=== PATIENT | female | born 1955 | race Caucasian/White ===

== ENCOUNTER 2020-10-01 05:58 | Outpatient (REF) | payer OTHER, SELFPAY ==
[2020-10-01 07:01] LABS: Hematocrit 46.4 % (37-47); Hemoglobin 15.1 g/dl (12.0-16.0); Mean Corpuscular HGB Conc 32.5 g/dl (31.0-35.0); Mean Corpuscular Hemoglobin 28.4 pg (27.0-33.0); Mean Corpuscular Volume 87.4 fL (80-98); Mean Platelet Volume 9.9 fL (9.4-12.3); Platelet Count 245 X10*3/uL (160-400); Red Blood Count 5.31 X10*6/uL (4.20-5.50); Red Cell Distribution Width 13.2 % (11.0-16.0); White Blood Count 5.3 X10*3/uL (4.8-10.8)
[2020-10-01 07:34] LABS: Alanine Aminotransferase 22 U/L (0-31); Albumin Level 4.4 g/dL (3.5-5.0); Alkaline Phosphatase 109 U/L (39-117); Anion Gap 13 (12-20); Aspartate Amino Transferase 18 U/L (5-31); Bilirubin Total 0.7 mg/dL (0.0-1.0); Blood Urea Nitrogen 18 mg/dL (9-16); Carbon Dioxide 29 mmol/L (22-29); Chloride 102 mmol/L (96-108); Cholesterol 254 mg/dL; Estimated Glomerular Filt Rate > 60; Glucose Fasting 104 mg/dL (60-99); Glucose Urine UA NEG (NEG); HDL Cholesterol 47 mg/dL; LDL Cholesterol Calculated 179 mg/dl; Leukocyte Esterase Urine NEG (NEG); Nitrite Urine NEG (NEG); Potassium 4.2 mmol/L (3.3-5.1); Sodium 140 mmol/L (135-145); Specific Gravity - Urine 1.025 (1.005-1.025); Total Protein 7.5 g/dL (6.5-8.0); Triglycerides 142 mg/dL; Urine Blood NEG (NEG); Urine Ketones NEG (NEG); Urine Protein NEG (NEG-TRACE)
[2020-10-01 07:38] LABS: Appearance Urine CLEAR; Color Urine YELLOW
[2020-10-01 07:51] LABS: RBC Urine 0 /HPF (0); Squamous Epithelial Cell Urine 1+ /LPF; WBC Urine 0 /HPF (0-4)
[2020-10-01 07:57] LABS: Vitamin D 25-OH Total 26.3 ng/mL (>30)
[2020-10-01 08:12] LABS: Estimated Average Glucose 111 mg/dL; Hemoglobin A1c % 5.5 %
== END 2020-10-01 05:59 | disposition home or self-care (01) ==
LOC: HO.LAB 05:58
PROVIDERS: PCP Internal Medicine; Visit Provider Internal Medicine
DX: Z00.00 Encounter for general adult medical examination without abnormal findings (principal); E55.9 Vitamin D deficiency, unspecified; E78.5 Hyperlipidemia, unspecified; R73.9 Hyperglycemia, unspecified
CPT/HCPCS: 36415; 80053; 80061; 81001; 82306; 82533; 83036; 84443; 85027

== ENCOUNTER 2020-11-19 11:07 | Outpatient (REF) | payer OTHER, SELFPAY ==
--- NOTE | ~2020-11-19 | MM_ITS ---
EXAMINATION: MM SCREENING DIGITAL BREAST TOMOSYNTHESIS, BILATERAL CLINICAL INFORMATION: Screening. Asymptomatic. The lifetime risk of breast cancer based on the Tyrer-Cuzick Model is 15%. COMPARISON: Mammography: 01/17/2018, 11/26/2015, 03/19/2014 TECHNIQUE: Digital breast tomosynthesis is performed in both the craniocaudal and mediolateral oblique views along with computer-aided detection (CAD). Synthesized 2D images are generated from the tomosynthesis. FINDINGS: There are scattered areas of fibroglandular density (ACR BI-RADS breast composition Category b). There are no significant masses, abnormal calcifications, or other abnormalities. There is no developing density. No significant changes from prior studies. MM/MM tomosynthesis screening BI IMPRESSION: No mammographic evidence of malignancy. ASSESSMENT: BI-RADS 1: Negative RECOMMENDATION: Routine annual mammography screening. This patient's information was entered into a reminder system with a target due date for their next mammogram.
== END 2020-11-19 11:08 | disposition home or self-care (01) ==
LOC: HO.MAMMO 11:07
PROVIDERS: Visit Provider Internal Medicine
DX: Z12.31 Encounter for screening mammogram for malignant neoplasm of breast (principal)
CPT/HCPCS: 77063; 77067

== ENCOUNTER 2020-11-20 08:54 | Outpatient (REF) | payer OTHER, SELFPAY ==
[2020-11-27 07:26] LABS: HPV 16 RNA NOT DETECTED (NOT DETECTED); HPV mRNA E6/E7 rflx Detected (Not Detected)
== END 2020-11-20 08:55 | disposition home or self-care (01) ==
LOC: HO.LAB 08:54
PROVIDERS: PCP Internal Medicine; Visit Provider Advanced Practice Midwife
DX: Z01.419 Encounter for gynecological examination (general) (routine) without abnormal findings (principal); Z11.51 Encounter for screening for human papillomavirus (HPV)
CPT/HCPCS: 87624; 87625; 88142

== ENCOUNTER 2020-12-09 06:45 | Emergency (ER) | payer MEDICARE, SELFPAY ==
--- NOTE | ~2020-12-09 | XR_ITS ---
EXAMINATION: LEFT ELBOW BILATERAL WRIST X-RAY CLINICAL INFORMATION: Pain post fall COMPARISON: None TECHNIQUE: 3 views of the right elbow and 4 views of each wrist FINDINGS: Right elbow: There is a vertical nondisplaced fracture of the radial head. Joint spaces are normal. There is a joint effusion. Left wrist: Bone alignment is normal. No fracture or dislocation is seen. There is arthritis at the first LONGTERM joint. Soft tissues are unremarkable. Right wrist: Bone alignment is normal. No fracture or dislocation is seen. There is arthritis at the first LONGTERM joint. Soft tissues are normal. XR/XR wrist LT min 3V IMPRESSION: Right elbow: Nondisplaced radial head fracture. Bilateral wrist: Arthritis.
--- NOTE | ~2020-12-09 | XR_ITS ---
EXAMINATION: LEFT ELBOW BILATERAL WRIST X-RAY CLINICAL INFORMATION: Pain post fall COMPARISON: None TECHNIQUE: 3 views of the right elbow and 4 views of each wrist FINDINGS: Right elbow: There is a vertical nondisplaced fracture of the radial head. Joint spaces are normal. There is a joint effusion. Left wrist: Bone alignment is normal. No fracture or dislocation is seen. There is arthritis at the first NURSING HOME joint. Soft tissues are unremarkable. Right wrist: Bone alignment is normal. No fracture or dislocation is seen. There is arthritis at the first NURSING HOME joint. Soft tissues are normal. XR/XR elbow RT min 3V IMPRESSION: Right elbow: Nondisplaced radial head fracture. Bilateral wrist: Arthritis.
--- NOTE | ~2020-12-09 | XR_ITS ---
EXAMINATION: LEFT ELBOW BILATERAL WRIST X-RAY CLINICAL INFORMATION: Pain post fall COMPARISON: None TECHNIQUE: 3 views of the right elbow and 4 views of each wrist FINDINGS: Right elbow: There is a vertical nondisplaced fracture of the radial head. Joint spaces are normal. There is a joint effusion. Left wrist: Bone alignment is normal. No fracture or dislocation is seen. There is arthritis at the first PENITENTIARY joint. Soft tissues are unremarkable. Right wrist: Bone alignment is normal. No fracture or dislocation is seen. There is arthritis at the first PENITENTIARY joint. Soft tissues are normal. XR/XR wrist RT min 3V IMPRESSION: Right elbow: Nondisplaced radial head fracture. Bilateral wrist: Arthritis.
[2020-12-09 07:02] VITALS: BP 149/87; PULSE 67; RESP 18; TEMP 36.3; O2SAT 98; BMI 17.4
--- NOTE | 2020-12-09 07:19 | ED.UPPEXIN ---
HPI - Extremity Injury (Upper) General Chief Complaint: Extremity Problem Stated Complaint: right arm injury Time Seen by Provider: 12/09/20 06:55 Source: patient Mode of arrival: ambulatory Limitations: no limitations History of Present Illness complaint: injury to: right, elbow and wrist Other Extremity Injury: right: wrist and elbow Other injuries: face (scraped nose and upper lip) Handedness: right Place: other (acquaintance house) Severity: moderate Relieving factors: immobilization Exacerbating factors: movement of extremity Context: fall and direct blow Associated symptoms: denies other symptoms Treatments prior to arrival: bandage and NSAIDS Related Data Previous Rx's Medication Instructions Recorded naproxen 500 mg tablet 500 mg PO BID #60 tab 10/10/20 Allergies Allergy/AdvReac Type Severity Reaction Status Date / Time No Known Allergies Allergy Unverified 02/21/20 17:50 [No Known Allergies*] mold, cat dander, seasonal Allergy Unknown Uncoded 02/06/20 00:00 Review of Systems Review of Systems: Constitutional : No Fever, No Chills ENT/Mouth : No Ear Pain, No Hoarseness, No sore throat Eyes: No Eye Pain, No Swelling, No Redness, No Foreign Body Cardiovascular : No Chest Pain, No SOB Respiratory : No Cough, No Dyspnea Gastrointestinal : No Nausea, No Vomiting, No Diarrhea, No abdominal Pain Genitourinary : No Dysuria, No Hematuria Musculoskeletal : positive joint pain, No Myalgias, No Joint Swelling Skin : No Skin lacerations, pos abrasions Neuro : No Weakness, No Numbness, No Loss of Consciousness, No Dizziness, No Headache All other systems reviewed and are negative [facility] Past Medical History Attestation statement: The following information was validated with the patient. Medical History Abnormal Pap smear of cervix Annual physical exam Hyperglycemia Hyperlipidemia Vitamin D deficiency Surgical History H/O removal of cyst H/O shoulder surgery H/O: hysterectomy Hx of section Family History Family History (Updated 11/20/20 @ 11:01 by Vanessa Smith) Mother Breast CA Maternal Grandmother Breast CA Son Suicide Social History Social History Patient Tobacco Use Status: Never used Tobacco Advance Directives: Yes Advance Directives Information Provided: Yes Advance Directives on File: No Physical Exam Vital Signs: Vital Signs: Last Vital Signs Temp 97.4 F 12/09/20 07:02 Pulse 67 12/09/20 07:02 Resp 18 12/09/20 07:02 BP 149/87 H 12/09/20 07:02 Pulse Ox 98 12/09/20 07:02 Body Mass Index 17.4 Appearance: Alert. Oriented X3. No acute distress. Eyes: Pupils equal, round and reactive to light. ENT: Pharynx normal. bruised and mild swelling upper lip, abrasion to bridge of nose mild swelling no septal hematoma no crepitus noted over bridge of nose Neck: Normal inspection. Neck supple. CVS: Pulses normal. Respiratory: No respiratory distress. Abdomen: no signs of trauma Skin: Skin warm and dry. Normal skin color. Normal skin turgor. Extremities: No lower extremity edema. No calf ttp R UE ttp R elbow and R wrist - distal NV intact no pain to shoulder/fingers/forearm/clavicle Neuro: Oriented X 3. No motor deficit. No sensory deficit. Procedures Orthopedic Splinting/Casting Injury #1: Side: right Upper Extremity Injury Location: elbow Upper Extremity Immobilizer: sling/shoulder immobilizer MDM - Extremity Injury (Upper) MDM Narrative Medical decision making narrative: 65 yo female not on AC therapy here with R elbow and wrist pain post mechanical fall patient is NV intact, has soft tissue injuries on face GCS 15 doubt fracture or ICH, will need xrays of RUE - dispo per results and findings. Discharge Plan Discharge Clinical Impression: Closed fracture of radial head Qualifiers: Encounter type: initial encounter Fracture alignment: nondisplaced Laterality: right Qualified Code(s): S52.124A - Nondisplaced fracture of head of right radius, initial encounter for closed fracture Patient Disposition: Home, Self-Care Instructions: Elbow Fracture (ED) Additional Instructions: return to ED for any worsening symptoms or concerns sling x 2 weeks follow up with orthopedics move your wrist/fingers/rotate shoulder Prescriptions: No Action naproxen 500 mg tablet 500 mg PO BID Qty: 60 RF: 1 Referrals: Genevieve Combs PA-C [Physician [facility] Specialist] - 1 week Stand Alone Forms: Work/School Release
== END 2020-12-09 08:37 | disposition home or self-care (01) ==
PROVIDERS: Emergency Provider Emergency Medicine; PCP Internal Medicine
DX: S52.124A Nondisplaced fracture of head of right radius, initial encounter for closed fracture (principal); S00.31XA Abrasion of nose, initial encounter; S00.531A Contusion of lip, initial encounter; W01.0XXA Fall on same level from slipping, tripping and stumbling without subsequent striking against object, initial encounter; Y93.89 Activity, other specified; Y92.099 Unspecified place in other non-institutional residence as the place of occurrence of the external cause; Y99.9 Unspecified external cause status
CPT/HCPCS: 73080; 73110; 99283

== ENCOUNTER 2020-12-17 08:04 | Outpatient (REF) | payer MEDICARE, SELFPAY ==
--- NOTE | ~2020-12-17 | XR_ITS ---
EXAMINATION: XR ELBOW, RIGHT CLINICAL INFORMATION: Right elbow pain. COMPARISON: Right elbow radiographs dated 12/09/2020. TECHNIQUE: AP, lateral, and oblique views of the right elbow. FINDINGS: Redemonstration of a nondisplaced radial head fracture in unchanged anatomic alignment. No new fracture or dislocation. No joint space narrowing or marginal osteophytes. Reduction of the previously seen joint effusion. XR/XR elbow RT min 3V IMPRESSION: Radial head fracture in unchanged anatomic alignment.
== END 2020-12-17 08:05 | disposition home or self-care (01) ==
LOC: HO.HOSX 08:04
PROVIDERS: Visit Provider Physician Assistant
DX: S52.121D Displaced fracture of head of right radius, subsequent encounter for closed fracture with routine healing (principal)
CPT/HCPCS: 73080; 99202

== ENCOUNTER 2020-12-18 08:33 | Outpatient (REF) | payer MEDICARE, OTHER, SELFPAY | END 2020-12-18 08:34 | disposition home or self-care (01) | LOC: HO.LAB 08:33 | PROVIDERS: PCP Internal Medicine; Visit Provider Obstetrics & Gynecology | DX: R87.612 Low grade squamous intraepithelial lesion on cytologic smear of cervix (LGSIL) (principal) | CPT/HCPCS: 57421; 88305 ==

== ENCOUNTER 2020-12-31 08:20 | Outpatient (REF) | payer MEDICARE, OTHER, SELFPAY ==
--- NOTE | ~2020-12-31 | XR_ITS ---
EXAMINATION: XR ELBOW, RIGHT CLINICAL INFORMATION: Right elbow pain. COMPARISON: 12/17/2020 and 12/09/2020. TECHNIQUE: AP, lateral, and oblique views of the right elbow. FINDINGS: There is no significant change in appearance of a nondisplaced radial head fracture. There is some mild sclerosis about the fracture site, however fracture line is still evident. There is some spurring consistent with lateral epicondylitis. There is spurring of the coronoid process. Elbow effusion is evident. XR/XR elbow RT min 3V IMPRESSION: No significant change in appearance of right radial head fracture.Right elbow effusion.
== END 2020-12-31 08:21 | disposition home or self-care (01) ==
LOC: HO.HOSX 08:20
PROVIDERS: PCP Internal Medicine; Visit Provider Physician Assistant
DX: R87.612 Low grade squamous intraepithelial lesion on cytologic smear of cervix (LGSIL) (principal); S52.123D Displaced fracture of head of unspecified radius, subsequent encounter for closed fracture with routine healing
CPT/HCPCS: 73080; 99212; Q3014

== ENCOUNTER 2021-02-11 07:53 | Outpatient (REF) | payer MEDICARE, OTHER, SELFPAY | END 2021-02-11 07:54 | disposition home or self-care (01) | LOC: HO.HOSX 07:53 | PROVIDERS: Visit Provider Physician Assistant | DX: Z13.89 Encounter for screening for other disorder (principal) ==

== ENCOUNTER 2021-02-18 07:45 | Outpatient (REF) | payer MEDICARE, OTHER, SELFPAY ==
--- NOTE | ~2021-02-18 | XR_ITS ---
EXAMINATION: XR ELBOW, RIGHT CLINICAL INFORMATION: Pain COMPARISON: 12/31/2020 TECHNIQUE: AP, lateral, and oblique views of the right elbow. FINDINGS: Redemonstration of radial head fracture, this has not healed yet. No new fracture. Bone alignments otherwise are satisfactory. XR/XR elbow RT min 3V IMPRESSION: Redemonstration of unhealed nondisplaced radial head fracture.
== END 2021-02-18 07:46 | disposition home or self-care (01) ==
LOC: HO.HOSX 07:45
PROVIDERS: Visit Provider Physician Assistant
DX: S52.121D Displaced fracture of head of right radius, subsequent encounter for closed fracture with routine healing (principal)
CPT/HCPCS: 73080; 99212

== ENCOUNTER 2021-03-24 08:00 | Outpatient (REF) | payer MEDICARE, OTHER, SELFPAY ==
--- NOTE | ~2021-03-24 | MM_ITS ---
EXAMINATION: BONE DENSITOMETRY CLINICAL INDICATION: Asymptomatic menopausal state. COMPARISON: Baseline BD dated 04/06/2018. TECHNIQUE: Using a [employer] DXA System (software version: 13.1) manufactured by [employer], dual-energy x-ray absorptiometry was performed of the lumbar spine and left hip. The images are of good technical quality. Summary results are attached. FINDINGS: AP SPINE L1-L4: Current: BMD 1.004 g/cm2, Z-score -1.0, T-score -1.5, osteopenia, 0.2% increase from baseline (<5% change is not significant). Baseline: BMD 1.002 g/cm2. LEFT FEMUR, NECK: Current: BMD 0.797 g/cm2, Z-score -1.0, T-score -1.7, osteopenia. Baseline: BMD 0.862 g/cm2. LEFT FEMUR, TOTAL: Current: BMD 0.916 g/cm2, Z-score -0.4, T-score -0.7, normal, 4.7% decrease from baseline (<5% change is not significant). Baseline: BMD 0.961 g/cm2. IDENTIFIED RISK FACTORS: Early menopause, secondary osteoporosis, hysterectomy, history of fracture (adult). HISTORY OF FRACTURE: Other. MEDICATIONS: Calcium supplements or multivitamin, vitamin D. MM/XR DEXA axial skeleton IMPRESSION: 1. DIAGNOSIS: Osteopenia based on the lowest T-score value of -1.7 in the femoral neck applying World Health Organization criteria. 2. 10-YEAR FRACTURE RISK PREDICTION, FRAX: Major osteoporotic fracture (clinical spine, forearm, hip or shoulder) 14.5%. Hip fracture 1.8%. 3. Treatment Recommendations: NOF guidelines recommend consideration for treatment in postmenopausal women and men age 50 and older presenting with the following: -A hip or vertebral (clinical or morphometric) fracture. -T-score less than or equal to -2.5 at the femoral neck or spine after appropriate evaluation to exclude secondary causes. -Low bone mass at the hip or spine and a 10-year fracture probability by FRAX of greater than or equal to 3% for hip fracture or greater than or equal to 20% for major osteoporotic fracture based on the [place] adapted WHO algorithm. 4. Other Recommendations: All treatment decisions require clinical judgment and consideration of individual patient factors, including patient preferences, comorbidities, previous drug use, risk factors not captured in the FRAX model (e.g. frailty, falls, vitamin D deficiency, increased bone turnover, interval significant decline in bone density) and possible under or overestimation of fracture risk by FRAX. Additional medical evaluation for secondary cause of low bone mineral density may be appropriate. FUTURE SCAN RECOMMENDATION: People with diagnosed cases of osteoporosis or at high risk for fracture should have regular bone mineral density tests. For patients eligible for Medicare, routine testing is allowed once every 2 years. The testing frequency can be increased to one year for patients who have rapidly progressing disease, those who are receiving or discontinuing medical therapy to restore bone mass, or have additional risk factors.
== END 2021-03-24 08:01 | disposition home or self-care (01) ==
LOC: HO.MAMMO 08:00
PROVIDERS: PCP Internal Medicine; Visit Provider Internal Medicine
DX: Z13.820 Encounter for screening for osteoporosis (principal); M85.80 Other specified disorders of bone density and structure, unspecified site; Z78.0 Asymptomatic menopausal state; Z79.899 Other long term (current) drug therapy
CPT/HCPCS: 77080

== ENCOUNTER 2021-04-01 07:18 | Outpatient (REF) | payer MEDICARE, OTHER, SELFPAY ==
--- NOTE | ~2021-04-01 | XR_ITS ---
EXAMINATION: XR ELBOW, RIGHT CLINICAL INFORMATION: Fracture radial head. Follow-up. COMPARISON: Radiographs right elbow 02/18/2021, 12/31/2020 TECHNIQUE: AP, lateral, and oblique views of the right elbow. FINDINGS: Transverse fracture base radial head is still visible. There is some mild callus formation suggested along the fracture line. Fracture fragments are unchanged in alignment. There is no acute fracture or dislocation. Small capsular effusion again seen. XR/XR elbow RT min 3V IMPRESSION: No change in alignment fracture base radial head.
== END 2021-04-01 07:19 | disposition home or self-care (01) ==
LOC: HO.HOSX 07:18
PROVIDERS: Visit Provider Physician Assistant
DX: S52.123D Displaced fracture of head of unspecified radius, subsequent encounter for closed fracture with routine healing (principal); X58.XXXD Exposure to other specified factors, subsequent encounter
CPT/HCPCS: 73080; 99212

== ENCOUNTER 2021-05-12 06:02 | Outpatient (REF) | payer MEDICARE, OTHER, SELFPAY ==
[2021-05-12 07:55] LABS: Estimated Average Glucose 114 mg/dL; Hemoglobin A1c % 5.6 %
[2021-05-12 08:07] LABS: Cholesterol 252 mg/dL; HDL Cholesterol 48 mg/dL; LDL Cholesterol Calculated 180 mg/dl; Triglycerides 123 mg/dL
== END 2021-05-12 06:03 | disposition home or self-care (01) ==
LOC: HO.LAB 06:02
PROVIDERS: PCP Internal Medicine; Visit Provider Internal Medicine
DX: E78.5 Hyperlipidemia, unspecified (principal); R73.9 Hyperglycemia, unspecified
CPT/HCPCS: 36415; 80061; 83036

== ENCOUNTER 2021-10-20 06:13 | Outpatient (REF) | payer MEDICARE, OTHER, SELFPAY ==
[2021-10-20 07:37] LABS: Hemoglobin 14.3 g/dl (12.0-16.0); Mean Corpuscular HGB Conc 33.3 g/dl (31.0-35.0); Mean Corpuscular Hemoglobin 29.2 pg (27.0-33.0); Mean Corpuscular Volume 87.8 fL (80.0-98.0); Platelet Count 217 X10*3/uL (160-400); Red Cell Distribution Width 13.5 % (11.0-16.0); White Blood Count 4.8 X10*3/uL (4.8-10.8)
[2021-10-20 07:48] LABS: Estimated Average Glucose 117 mg/dL; Hemoglobin A1c % 5.7 %
[2021-10-20 08:09] LABS: Alanine Aminotransferase 43 U/L (0-31); Albumin Level 4.2 g/dL (3.5-5.0); Alkaline Phosphatase 90 U/L (39-117); Anion Gap 12 (12-20); Aspartate Amino Transferase 29 U/L (5-31); Bilirubin Total 0.9 mg/dL (0.0-1.0); Blood Urea Nitrogen 17 mg/dL (9-16); Calcium 9.8 mg/dL (8.4-10.2); Carbon Dioxide 25 mmol/L (22-29); Chloride 106 mmol/L (96-108); Cholesterol 232 mg/dL; Estimated Glomerular Filt Rate > 60; Glucose Fasting 97 mg/dL (60-99); HDL Cholesterol 47 mg/dL; LDL Cholesterol Calculated 167 mg/dl; Potassium 4.3 mmol/L (3.3-5.1); Sodium 139 mmol/L (135-145); Total Protein 7.1 g/dL (6.5-8.0); Triglycerides 91 mg/dL
[2021-10-20 08:18] LABS: Vitamin D 25-OH Total 28.1 ng/mL (>30)
[2021-10-20 08:54] LABS: Appearance Urine HAZY; Color Urine YELLOW; Glucose Urine UA NEG (NEG); Leukocyte Esterase Urine NEG (NEG); Nitrite Urine NEG (NEG); PH 5.5 (5.0-8.0); Specific Gravity - Urine 1.025 (1.005-1.025); Urine Blood NEG (NEG); Urine Ketones NEG (NEG); Urine Protein NEG (NEG-TRACE)
[2021-10-20 09:10] LABS: Mucus Urine 2+ /LPF; Squamous Epithelial Cell Urine TRACE /LPF
[2021-10-20 09:11] LABS: RBC Urine 0 /HPF (0); WBC Urine 0 /HPF (0-4)
== END 2021-10-20 06:14 | disposition home or self-care (01) ==
LOC: HO.LAB 06:13
PROVIDERS: PCP Internal Medicine; Visit Provider Internal Medicine
DX: Z00.00 Encounter for general adult medical examination without abnormal findings (principal); E55.9 Vitamin D deficiency, unspecified; E78.5 Hyperlipidemia, unspecified; R73.9 Hyperglycemia, unspecified; Z78.0 Asymptomatic menopausal state
CPT/HCPCS: 36415; 80053; 80061; 81001; 82306; 83036; 85027

== ENCOUNTER 2022-02-09 06:07 | Outpatient (REF) | payer MEDICARE, OTHER, SELFPAY ==
[2022-02-09 08:01] LABS: Cholesterol 247 mg/dL; HDL Cholesterol 47 mg/dL; LDL Cholesterol Calculated 174 mg/dl; Triglycerides 132 mg/dL
== END 2022-02-09 06:08 | disposition home or self-care (01) ==
LOC: HO.LAB 06:07
PROVIDERS: PCP Internal Medicine; Visit Provider Internal Medicine
DX: Z00.00 Encounter for general adult medical examination without abnormal findings (principal); E78.5 Hyperlipidemia, unspecified
CPT/HCPCS: 36415; 80061

== ENCOUNTER 2023-12-02 08:21 | Outpatient (AMB) | payer MEDICARE, OTHER, SELFPAY ==
--- NOTE | 2023-12-02 08:33 | A.OFFPC_ITS ---
Vital Signs 12/02/23 08:34 Height 5 ft 8 in Weight 250 lb BMI 38.0 BP 116/76 Blood Pressure Location Lt brachial Position Sitting Pulse 64 Pulse Source Pulse Oximeter Pulse Oximetry (%) 98 Oxygen Delivery Method Room Air Intake Visit Reasons: Annual PE Intake Note: Pt is here today for PE. Pt states that she would like to have her glucose checked. Allergies No Known Allergies [No Known Allergies*] Allergy (Verified 12/02/23 08:35) mold, cat dander, seasonal Allergy (Unknown, Uncoded 12/02/23 08:35) unk Medication List - Last Reconciled 12/02/23 by Brooke Cruz MD blood sugar diagnostic (FreeStyle Lite Strips) test blood sugar once daily naproxen 500 mg PO BID Tobacco use date assessed: 12/02/23 Fall risk assessment: No Falls in past year Last assessed Fall Risk: 12/02/23 Dental Screening Dental Screen Date: 12/02/23 Did you have a dental visit in the last 12 months?: Yes Did you have a dental problem in the last 6 months where you did not have access to dental care?: No Was dental information given to patient?: Patient has dentist HPI Annual PE HPI Details Pt presents for PE. PFSH Medical History Colonoscopy refused Radius fracture Normal colonoscopy Postmenopausal Abnormal Pap smear of cervix Vitamin D deficiency Hyperglycemia Hyperlipidemia Annual physical exam Surgical History Hx of section H/O shoulder surgery H/O: hysterectomy H/O removal of cyst Family History Mother Breast CA Maternal Grandmother Breast CA Son Suicide Social History Housing: House Alcohol intake: current Alcohol intake frequency: holidays/special occasions only Patient Tobacco Use Status: Never used Tobacco e-Cigarette/Vaping Use: Never Used service: No Current occupational status: retired Current occupation: right handed Cognitive needs: No Hearing needs: No Vision needs: Yes Female Reproductive History Menstrual Age of Menarche: 13 Questionnaire PHQ-9 Over the last 2 weeks, how often have you been bothered by any of the following problems? 1. Little interest or pleasure in doing things: several days 2. Feeling down, depressed, or hopeless: several days 3. Trouble falling or staying asleep, or sleeping too much: several days 4. Feeling tired or having little energy: several days 5. Poor appetite or overeating: not at all 6. Feeling bad about yourself - or that you are a failure or have let yourself or your family down: not at all 7. Trouble concentrating on things, such as reading the newspaper or watching television: not at all 8. Moving or speaking so slowly that other people could have noticed. Or the opposite - being so fidgety or restless that you have been moving around a lot more than usual: not at all 9. Thoughts that you would be better off or of hurting yourself in some way: not at all Total score: 4 Depression Screening Interpretation: Negative Depression Screening Done: Yes Source: Developed by Drs. Sawyer Celis, Pati Capps, Torrey Villa and colleagues, with an educational sharan from [employer]. Thrive Questionnaire Date Thrive assessed: 12/02/23 I am a: Patient What is your living situation today?: I have a steady place to live Within the past 12 months, did the food you bought not last and you didn't have the money to get more?: Never true Within the past 12 months, did you worry whether your food would run out before you got money to buy more?: Never true Do you have trouble paying for medicines?: No Do you have trouble getting transportation to medical appointments?: No Do you have trouble paying your heating and electricity bill?: No Do you have trouble taking care of your child, family member or friend?: No Do you have trouble with day-to-day activities such as bathing, preparing meals, shopping, managing finances, etc.?: No Are you currently unemployed and looking for a job?: No Are you interested in more education?: No Please select the resources that you would like help with: None THRIVE Score: 0 AUDIT C Alcohol Use Questionnaire (AUDIT-C) 1. How often do you have a drink containing alcohol?: Monthly or less 2. How many drinks containing alcohol do you have on a typical day when you are drinking?: 1 or 2 3. How often do you have six or more drinks on one occasion?: Never Total Score: 1 CHARMAINE-7 AMB Questionnaire CHARMAINE-7 Date CHARMAINE - 7 assessed: 12/02/23 Feeling nervous, anxious, or on edge: 0 = Not at all Not being able to stop or control worryin = Several days Worrying too much about different things: 1 = Several days Trouble relaxin = Not at all Being so restless that it is hard to sit still: 0 = Not at all Becoming easily annoyed or irritable: 1 = Several days Feeling afraid as if something awful might happen: 0 = Not at all Total CHARMAINE-7 score (0-4 normal; 5-9 mild; 10-14 moderate; 15-21 severe): 3 Source: Developed by Drs. Sawyer Celis, Pati Capps, Torrey Villa and colleagues, with an educational sharan from [employer]. Review of Systems Const All systems reviewed & are unremarkable except as noted in HPI and below Reports no additional complaints Eyes Reports no additional complaints ENT Reports no additional complaints Card Reports no additional complaints Resp Reports no additional complaints GI Reports no additional complaints Reports no additional complaints Physical exam (Primary Care) Vital Signs: Last Vital Signs Pulse 64 12/02/23 08:34 BP 116/76 12/02/23 08:34 Pulse Ox 98 12/02/23 08:34 Oxygen Delivery Method Room Air 12/02/23 08:34 BMI result Body Mass Index 38.0 Tobacco/Smoking Status: Tobacco use Status Tobacco use date assessed 12/02/23 12/02/23 08:40 Patient Tobacco Use Status Never used Tobacco 12/02/23 08:40 e-Cigarette/Vaping Use Never Used 12/02/23 08:40 PHQ-9: PHQ-9 Score PHQ-9: Total score 4 12/02/23 08:45 Depression Screening Interpretation: Negative Thrive Assessment: Date of Thrive Assessment Date Thrive assessed 12/02/23 12/02/23 08:45 Const General: no acute distress HENMT Head: Yes normal to inspection General nose exam: Normal external nose present Mouth: Normal oral and palatal mucosa present Eyes General: appearance normal, both eyes and all related structures Neck Neck: Yes supple Carotids: bruit bilateral Resp Effort & Inspection: normal respiratory effort Auscultation: clear to auscultation bilaterally Cardio Rhythm: regular rhythm Heart sounds: S1 normal heart sound present and S2 normal heart sound present GI Inspection: Yes normal to inspection Palpation (GI): Soft to palpation Percussion: Yes normal to percussion Auscultation: normal bowel sounds Results AMB Random Glucose (hemocue) AMB Random Glucose (hemocue) 94 mg/dL Last Edit by KIMBERLY Rodriguez on 12/02/23 08:43 Results Reviewed Results Reviewed: Laboratory Last Values Random Glu (Clinic) 94 mg/dL 12/02/23 08:43 Assessment and Plan Assessment & Plan (1) Annual physical exam: Code(s): Z00.00 - Encounter for general adult medical examination without abnormal findings Plan: Well-balanced diet regular exercise discussed with the patient . she declined mammogram colonoscopy (2) Hyperlipidemia: Comment: pt refuses to take statins, despite strong FHx of coronary artery disease, both parents had CABG in late 60's Code(s): E78.5 - Hyperlipidemia, unspecified Plan: Check lipid profile. Zetia was recommended patient will review online inf ormation, check carotid doppler, not interested in getting CT Ca score (3) Hyperglycemia: Code(s): R73.9 - Hyperglycemia, unspecified Plan: Check A1c (4) Vitamin D deficiency: Code(s): E55.9 - Vitamin D deficiency, unspecified Plan: Check vitamin-D (5) Bilateral carotid bruits: Code(s): R09.89 - Other specified symptoms and signs involving the circulatory and respiratory systems Plan: Obtain carotid Doppler Orders: Orders Lipid Panel 12/02/23 E55.9 - Vitamin D deficiency, unspecified, E78.5 - Hyperlipidemia, unspecified, R73.9 - Hyperglycemia, unspecified, Z00.00 - Encounter for general adult medical examination without abnormal findings Vitamin D 25-OH Total 12/02/23 E55.9 - Vitamin D deficiency, unspecified, E78.5 - Hyperlipidemia, unspecified, R73.9 - Hyperglycemia, unspecified, Z00.00 - Encounter for general adult medical examination without abnormal findings US carotid duplex BI 12/02/23 R09.89 - Other specified symptoms and signs involving the circulatory and respiratory systems AMB Random Glucose (hemocue) 12/02/23 Z13.9 - Encounter for screening, unspecified Comprehensive [place]. Panel Fast 12/02/23 E55.9 - Vitamin D deficiency, unspecified, E78.5 - Hyperlipidemia, unspecified, R73.9 - Hyperglycemia, unspecified, Z00.00 - Encounter for general adult medical examination without abnormal findings Complete Blood Count Auto Diff 12/02/23 E55.9 - Vitamin D deficiency, unspecified, E78.5 - Hyperlipidemia, unspecified, R73.9 - Hyperglycemia, unspecified, Z00.00 - Encounter for general adult medical examination without abnormal findings TSH reflex Free T4 12/02/23 E55.9 - Vitamin D deficiency, unspecified, E78.5 - Hyperlipidemia, unspecified, R73.9 - Hyperglycemia, unspecified, Z00.00 - Encounter for general adult medical examination without abnormal findings Coenzyme Q10, Total 12/02/23 E55.9 - Vitamin D deficiency, unspecified, E78.5 - Hyperlipidemia, unspecified, R73.9 - Hyperglycemia, unspecified, Z00.00 - Encounter for general adult medical examination without abnormal findings Hemoglobin A1c 12/02/23 E55.9 - Vitamin D deficiency, unspecified, E78.5 - Hyperlipidemia, unspecified, R73.9 - Hyperglycemia, unspecified, Z00.00 - Encounter for general adult medical examination without abnormal findings Coding Level of Care Code Est Pt Prev Care >65y(27386) Diagnoses Annual physical exam Z00.00 Hyperlipidemia E78.5 Hyperglycemia R73.9 Vitamin D deficiency E55.9 Bilateral carotid bruits R09.89
[2023-12-02 08:34] VITALS: BP 116/76; PULSE 64; O2SAT 98; BMI 38.0
== END 2023-12-02 09:03 | disposition home or self-care (01) ==
LOC: HO.HMGC 08:22
PROVIDERS: PCP Internal Medicine; Visit Provider Internal Medicine
DX: R73.9 Hyperglycemia, unspecified (principal)
CPT/HCPCS: 82948; 99397

== ENCOUNTER 2023-12-05 06:06 | Outpatient (REF) | payer MEDICARE, OTHER, SELFPAY ==
[2023-12-05 06:33] LABS: MANUAL DIFF FLAG NO
[2023-12-05 08:28] LABS: Basophils Percent Auto 0.8 % (0-2); Eosinophils Absolute Auto 0.1 X10*3/uL (0.0-0.4); Eosinophils Percent Auto 1.6 % (0-4); Hematocrit 45.4 % (37.0-47.0); Hemoglobin 14.9 g/dl (12.0-16.0); Imm Gran Abs Auto 0.01 X10*3/uL (0.00-0.03); Imm Gran Pct Auto 0.2 % (0.0-0.4); Lymphocytes Absolute Auto 2.2 X10*3/uL (1.2-4.9); Lymphocytes Percent Auto 43.3 % (20-40); Mean Corpuscular HGB Conc 32.8 g/dl (31.0-35.0); Mean Corpuscular Hemoglobin 29.1 pg (27.0-33.0); Mean Corpuscular Volume 88.7 fL (80.0-98.0); Mean Platelet Volume 10.8 fL (9.4-12.3); Monocytes Absolute Auto 0.4 X10*3/uL (0.1-1.2); Monocytes Percent Auto 8.2 % (2-11); Neutrophils Absolute Auto 2.3 x10*3/uL (2.0-8.3); Neutrophils Percent Auto 45.9 % (45-73); Platelet Count 209 X10*3/uL (160-400); Red Blood Count 5.12 X10*6/uL (4.20-5.50); Red Cell Distribution Width 13.4 % (11.0-16.0)
[2023-12-05 08:34] LABS: Estimated Average Glucose 117 mg/dL; Hemoglobin A1C 150.0402 umol/L; Hemoglobin A1c % 5.7 % (<6.0)
[2023-12-05 09:09] LABS: Alanine Aminotransferase 32 U/L (0-31); Albumin Level 4.1 g/dL (3.5-5.0); Alkaline Phosphatase 79 U/L (39-117); Anion Gap 12 (12-20); Aspartate Amino Transferase 28 U/L (5-31); Bilirubin Total 0.6 mg/dL (0.0-1.0); Blood Urea Nitrogen 20 mg/dL (9-16); Carbon Dioxide 28 mmol/L (22-29); Chloride 105 mmol/L (96-108); Cholesterol 239 mg/dL (<200); Estimated Glomerular Filt Rate > 60; Glucose Fasting 90 mg/dL (60-99); HDL Cholesterol 48 mg/dL (>40); LDL Cholesterol Calculated 163 mg/dL (<100); Potassium 4.2 mmol/L (3.3-5.1); Sodium 141 mmol/L (135-145); Total Protein 7.2 g/dL (6.5-8.0); Triglycerides 142 mg/dL (<150)
[2023-12-05 09:29] LABS: TSH reflex Free T4 2.85 uIU/mL (0.32-4.0); Vitamin D 25-OH Total 34.1 ng/mL (>30)
[2023-12-12 16:39] LABS: Coenzyme Q10, Total 1.27 ug/mL (>0.35)
== END 2023-12-05 06:07 | disposition home or self-care (01) ==
LOC: HO.LAB 06:06
PROVIDERS: PCP Internal Medicine; Visit Provider Internal Medicine
DX: Z00.00 Encounter for general adult medical examination without abnormal findings (principal); E55.9 Vitamin D deficiency, unspecified; R73.9 Hyperglycemia, unspecified; E78.5 Hyperlipidemia, unspecified
CPT/HCPCS: 36415; 80053; 80061; 82306; 82542; 83036; 84443; 85025

== ENCOUNTER 2023-12-14 08:19 | Outpatient (AMB) | payer MEDICARE, OTHER, SELFPAY ==
[2023-12-14 08:25] VITALS: BP 126/76; PULSE 65; O2SAT 96; BMI 38.5
--- NOTE | 2023-12-14 08:25 | AM.OFFWIN_ITS ---
Intake Vital Signs 12/14/23 08:25 Height 5 ft 8 in Weight 253 lb BMI 38.5 BP 126/76 Blood Pressure Location Rt brachial Position Sitting Pulse 65 Pulse Source Pulse Oximeter Pulse Oximetry (%) 96 Oxygen Delivery Method Room Air Intake Visit Reasons: EP UTI??? Patient Tobacco Use Status: Never used Tobacco Allergies No Known Allergies [No Known Allergies*] Allergy (Verified 12/14/23 08:25) mold, cat dander, seasonal Allergy (Unknown, Uncoded 12/02/23 08:35) unk Medication List - Last Reconciled 12/14/23 by Tariq Varghese MD blood sugar diagnostic (FreeStyle Lite Strips) test blood sugar once daily naproxen 500 mg PO BID Do you need a note to return to daycare/school/sports/work: No HPI EP UTI??? HPI Details Patient is 68-year-old female came in today to be evaluated for possible bladder infection Patient is symptomatic with a past few days she has been trying to push more fluids But symptoms did not resolve She does have slight chills but there is no fever no nausea no vomiting Suprapubic pressure she is feeling but there is no new back pain There is no headache no dizziness UA reveals positive leuk esterase and nitrite And 1+ blood I have sent Macrobid 100 mg b.i.d. for 5 days We will also send urine for culture. [facility] Medical History Colonoscopy refused Radius fracture Normal colonoscopy Postmenopausal Abnormal Pap smear of cervix Vitamin D deficiency Hyperglycemia Hyperlipidemia Annual physical exam Surgical History Hx of section H/O shoulder surgery H/O: hysterectomy H/O removal of cyst Family History Mother Breast CA Maternal Grandmother Breast CA Son Suicide Social History Housing: House Alcohol intake: current Alcohol intake frequency: holidays/special occasions only Patient Tobacco Use Status: Never used Tobacco e-Cigarette/Vaping Use: Never Used service: No Current occupational status: retired Current occupation: right handed Cognitive needs: No Hearing needs: No Vision needs: Yes Female Reproductive History Menstrual Age of Menarche: 13 Review of Systems Const All systems reviewed & are unremarkable except as noted in HPI and below Physical Exam Vital Signs: Last Vital Signs Pulse 65 12/14/23 08:25 BP 126/76 12/14/23 08:25 Pulse Ox 96 12/14/23 08:25 Oxygen Delivery Method Room Air 12/14/23 08:25 BMI result Body Mass Index 38.5 Const General: no acute distress Orientation/consciousness: patient oriented x3 Eyes General: appearance normal, both eyes and all related structures Resp Effort & Inspection: normal respiratory effort and able to speak in complete sentences GI Other: Mild suprapubic pressure General: Yes no CVA tenderness Back/Spine/Pelvis Back: no CVA tenderness Neuro General: patient oriented x3 Psych Mental Status: mental status grossly normal Assessment & Plan Assessment & Plan (1) Acute cystitis: Code(s): N30.00 - Acute cystitis without hematuria Qualifiers: Hematuria presence: with hematuria Qualified Code(s): N30.01 - Acute cystitis with hematuria Plan Patient is 68-year-old female came in today to be evaluated for possible bladder infection Patient is symptomatic with a past few days she has been trying to push more fluids But symptoms did not resolve She does have slight chills but there is no fever no nausea no vomiting Suprapubic pressure she is feeling but there is no new back pain There is no headache no dizziness UA reveals positive leuk esterase and nitrite And 1+ blood I have sent Macrobid 100 mg b.i.d. for 5 days We will also send urine for culture. Orders: Orders Urine Culture Today N30.00 - Acute cystitis without hematuria Medications: New nitrofurantoin monohyd/m-cryst 100 mg (Macrobid) must administer with a meal/food 100 mg PO Q12H 10 caps 0RF 5 days Coding Level of Care Code Est Pt Level 3 (74557) Diagnoses Acute cystitis with hematuria N30.01 Hematuria presence: with hematuria
== END 2023-12-14 08:53 | disposition home or self-care (01) ==
PROVIDERS: PCP Internal Medicine; Visit Provider Internal Medicine
DX: N30.01 Acute cystitis with hematuria (principal)
CPT/HCPCS: 81003; 99213

== ENCOUNTER 2023-12-14 10:02 | Outpatient (REF) | payer MEDICARE, OTHER, SELFPAY | END 2023-12-14 10:03 | disposition home or self-care (01) | LOC: HO.LNP 10:02 | PROVIDERS: Visit Provider Internal Medicine | DX: Z13.9 Encounter for screening, unspecified (principal) | CPT/HCPCS: 87086; 87088; 87186 ==

== ENCOUNTER 2023-12-19 10:14 | Outpatient (REF) | payer MEDICARE, OTHER, SELFPAY ==
--- NOTE | ~2023-12-19 | US_ITS ---
EXAMINATION: US EXTRACRANIAL CAROTID DUPLEX, BILATERAL CLINICAL INFORMATION: bilateral carotid bruits COMPARISON: None available. TECHNIQUE: Real-time ultrasound and Doppler techniques (integrating B-mode 2-D vascular images, Doppler spectral analysis and color-flow Doppler imaging) were utilized to interrogate the extracranial carotid arteries, the vertebral arteries and proximal subclavian arteries bilaterally. The degree of stenosis is determined by criteria similar to NASCET. FINDINGS: Right Side: 1. There is mild atherosclerotic plaque seen in the bifurcation/proximal ICA region. 2. The common carotid artery PSV proximally is 93.2 cm/s and distally 83.9 cm/s. 3. The proximal internal carotid artery velocities are 70.2 cm/s systolic and 28.1 cm/s diastolic. 4. The proximal external carotid artery PSV is 72.1 cm/s. 5. The vertebral artery shows antegrade flow. 6. The subclavian artery waveforms are normal. Left Side: 1. There is no atherosclerotic plaque seen in the bifurcation/proximal ICA region. 2. The common carotid artery PSV proximally is 154 cm/s and distally 69.3 cm/s. 3. The proximal internal carotid artery velocities are 60.1 cm/s systolic and 24.6 cm/s diastolic. 4. The proximal external carotid artery PSV is 61.9 cm/s. 5. The vertebral artery shows antegrade flow. 6. The subclavian artery waveforms are normal. US/US carotid duplex BI IMPRESSION: 1. RIGHT: Minimal, non-hemodynamically significant stenosis of the proximal right internal carotid artery corresponding to a 0-49% stenosis by velocity criteria. 2. LEFT: Normal left internal carotid artery without atherosclerotic plaque or hemodynamically significant stenosis.
== END 2023-12-19 10:15 | disposition home or self-care (01) ==
LOC: HO.US 10:14
PROVIDERS: PCP Internal Medicine; Visit Provider Internal Medicine
DX: R09.89 Other specified symptoms and signs involving the circulatory and respiratory systems (principal)
CPT/HCPCS: 93880

== ENCOUNTER 2025-03-29 08:55 | Emergency (ER) | payer MEDICARE, OTHER, SELFPAY ==
[2025-03-29] VITALS (13 sets, daily range): BP systolic 124–192; BP diastolic 67–93; PULSE 58–108; RESP 14–20; TEMP 36.4–36.6; O2SAT 98–99; BMI 36.6
--- NOTE | ~2025-03-29 | CT_ITS ---
EXAMINATION: CT ANGIOGRAM HEAD AND NECK CLINICAL INFORMATION: Dizziness, nausea, blurred vision, sudden onset 4:00 AM. 69-year-old female. COMPARISON: No priors available. TECHNIQUE: Noncontrast axial imaging of the head was performed. This was followed by test bolus sequences and head and neck intravenous bolus administration 70 mL of Omnipaque 350. Helical imaging was performed in the axial plane from the aortic arch to the skull vertex. A [address] head was also obtained. The data was processed at the chief radiologic technologist's workstation for generation of MIP sequences. Angled MIPs and volume rendered reformatted images were also generated at an offline 3D workstation. Stenoses are assessed in accordance with NASCET criteria unless otherwise indicated. This CT examination was performed using dose optimization techniques as appropriate, variously including the following: *Automated exposure control *Adjustment of mA and/or kV according to patient size (this includes techniques or standardized protocols for targeted exams where dose is matched to indication/reason for exam; i.e. extremities or head) *Use of iterative reconstruction technique FINDINGS: NONCONTRAST HEAD CT: There is no evidence of intracranial hemorrhage or extra-axial fluid collection. There is no mass effect, or edema. No CT evidence of acute territorial infarct. Ventricles, sulci, and cisterns are normal in size and configuration for patient age. No hydrocephalus. No midline shift. Mild hemispheric deep white matter hypointensities in keeping with mild small vessel ischemic changes. Globes and orbital contents image normally. No extracranial soft tissue abnormalities. The paranasal sinuses, mastoid air cells, and tympanic cavities are normally aerated. No suspicious bony abnormalities. 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 NECK CTA: -AORTIC ARCH: Normal in caliber. Mild atheromatous calcification. Three-vessel branching pattern. -GREAT VESSEL ORIGINS: Widely patent. No stenosis. -RIGHT COMMON CAROTID ARTERY: Normal in course and caliber to the level of the bifurcation. -CERVICAL RIGHT INTERNAL CAROTID ARTERY: Mild calcific atherosclerotic disease of the carotid bulb and proximal internal carotid artery without flow-limiting stenosis. -LEFT COMMON CAROTID ARTERY: Normal in course and caliber to the level of the bifurcation. -CERVICAL LEFT INTERNAL CAROTID ARTERY: Normal opacification without focal stenosis or occlusion. -CERVICAL RIGHT VERTEBRAL ARTERY: Codominant. Patent origin. Normal in course and caliber into the skull base. -CERVICAL LEFT VERTEBRAL ARTERY: Codominant. Patent origin. Normal in course and caliber into the skull base. OTHER, SOFT TISSUES: -No lymphadenopathy or mass. No abnormal fluid collection or soft tissue swelling. -Normal thyroid. -Imaged superior mediastinal structures normal. -Imaged lung apices appear clear. CTA OF THE BRAIN: -INTRACRANIAL INTERNAL CAROTID ARTERIES: Mild Calcific atherosclerotic disease of the intracranial internal carotid arteries without occlusion or flow-limiting stenosis. -RIGHT ANTERIOR CEREBRAL ARTERY: Normal A1 segment.. Normal arborization of the distal segments. -LEFT ANTERIOR CEREBRAL ARTERY: Normal A1 segment.. Normal arborization of the distal segments. -ANTERIOR COMMUNICATING ARTERY: Normal. -RIGHT MIDDLE CEREBRAL ARTERY: Normal M1 segment of the MCA without focal stenosis or occlusion. Normal bifurcation. Normal arborization of the distal segments. -LEFT MIDDLE CEREBRAL ARTERY: Normal M1 segment of the MCA without focal stenosis or occlusion. Normal bifurcation. Normal arborization of the distal segments. -RIGHT VERTEBRAL ARTERY V4: Normal in course and caliber. Normal PICA branch. -LEFT VERTEBRAL ARTERY V4: Normal in course and caliber. Normal PICA branch. -BASILAR ARTERY: Normal without focal stenosis or occlusion. Normal appearance of the proximal superior cerebellar arteries. Normal basilar tip. -RIGHT POSTERIOR CEREBRAL ARTERY: The P1 segment is diminutive. origin of the [employer] with robust opacification of the posterior communicating artery. Normal opacification of the distal [employer] segments. -LEFT POSTERIOR CEREBRAL ARTERY: Normal P1 segment. Normal opacification of the distal [employer] segments. -POSTERIOR COMMUNICATING ARTERIES: The right as above. The left is small but present. Normal opacification of the superior sagittal, straight, transverse, and sigmoid sinuses. No venous thrombosis. CT/CT angio head neck IMPRESSION: NON-CONTRAST HEAD CT: 1. No intracranial hemorrhage or mass effect. No CT evidence of acute territorial infarct. 2. Mild white matter small vessel ischemic changes. CTA NECK: 1. No evidence of significant stenosis, occlusion, dissection, or aneurysm of the major cervical arterial vasculature. 2. Mild calcium at the right carotid bulb without flow-limiting stenosis. CTA HEAD: 1. No evidence of significant stenosis, occlusion, dissection, or aneurysm of the major intracranial arterial vasculature. 2. Major cortical and dural venous sinuses are patent. Electronically signed by: Avel Bedolla MD 03/29/2025 10:22 AM EDT
--- NOTE | ~2025-03-29 | CT_ITS ---
EXAMINATION: CT ANGIOGRAM HEAD AND NECK CLINICAL INFORMATION: Dizziness, nausea, blurred vision, sudden onset 4:00 AM. 69-year-old female. COMPARISON: No priors available. TECHNIQUE: Noncontrast axial imaging of the head was performed. This was followed by test bolus sequences and head and neck intravenous bolus administration 70 mL of Omnipaque 350. Helical imaging was performed in the axial plane from the aortic arch to the skull vertex. A [address] head was also obtained. The data was processed at the cardiopulmonary technologist's workstation for generation of MIP sequences. Angled MIPs and volume rendered reformatted images were also generated at an offline 3D workstation. Stenoses are assessed in accordance with NASCET criteria unless otherwise indicated. This CT examination was performed using dose optimization techniques as appropriate, variously including the following: *Automated exposure control *Adjustment of mA and/or kV according to patient size (this includes techniques or standardized protocols for targeted exams where dose is matched to indication/reason for exam; i.e. extremities or head) *Use of iterative reconstruction technique FINDINGS: NONCONTRAST HEAD CT: There is no evidence of intracranial hemorrhage or extra-axial fluid collection. There is no mass effect, or edema. No CT evidence of acute territorial infarct. Ventricles, sulci, and cisterns are normal in size and configuration for patient age. No hydrocephalus. No midline shift. Mild hemispheric deep white matter hypointensities in keeping with mild small vessel ischemic changes. Globes and orbital contents image normally. No extracranial soft tissue abnormalities. The paranasal sinuses, mastoid air cells, and tympanic cavities are normally aerated. No suspicious bony abnormalities. 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 NECK CTA: -AORTIC ARCH: Normal in caliber. Mild atheromatous calcification. Three-vessel branching pattern. -GREAT VESSEL ORIGINS: Widely patent. No stenosis. -RIGHT COMMON CAROTID ARTERY: Normal in course and caliber to the level of the bifurcation. -CERVICAL RIGHT INTERNAL CAROTID ARTERY: Mild calcific atherosclerotic disease of the carotid bulb and proximal internal carotid artery without flow-limiting stenosis. -LEFT COMMON CAROTID ARTERY: Normal in course and caliber to the level of the bifurcation. -CERVICAL LEFT INTERNAL CAROTID ARTERY: Normal opacification without focal stenosis or occlusion. -CERVICAL RIGHT VERTEBRAL ARTERY: Codominant. Patent origin. Normal in course and caliber into the skull base. -CERVICAL LEFT VERTEBRAL ARTERY: Codominant. Patent origin. Normal in course and caliber into the skull base. OTHER, SOFT TISSUES: -No lymphadenopathy or mass. No abnormal fluid collection or soft tissue swelling. -Normal thyroid. -Imaged superior mediastinal structures normal. -Imaged lung apices appear clear. CTA OF THE BRAIN: -INTRACRANIAL INTERNAL CAROTID ARTERIES: Mild Calcific atherosclerotic disease of the intracranial internal carotid arteries without occlusion or flow-limiting stenosis. -RIGHT ANTERIOR CEREBRAL ARTERY: Normal A1 segment.. Normal arborization of the distal segments. -LEFT ANTERIOR CEREBRAL ARTERY: Normal A1 segment.. Normal arborization of the distal segments. -ANTERIOR COMMUNICATING ARTERY: Normal. -RIGHT MIDDLE CEREBRAL ARTERY: Normal M1 segment of the MCA without focal stenosis or occlusion. Normal bifurcation. Normal arborization of the distal segments. -LEFT MIDDLE CEREBRAL ARTERY: Normal M1 segment of the MCA without focal stenosis or occlusion. Normal bifurcation. Normal arborization of the distal segments. -RIGHT VERTEBRAL ARTERY V4: Normal in course and caliber. Normal PICA branch. -LEFT VERTEBRAL ARTERY V4: Normal in course and caliber. Normal PICA branch. -BASILAR ARTERY: Normal without focal stenosis or occlusion. Normal appearance of the proximal superior cerebellar arteries. Normal basilar tip. -RIGHT POSTERIOR CEREBRAL ARTERY: The P1 segment is diminutive. origin of the [facility] [employer] with robust opacification of the posterior communicating artery. Normal opacification of the distal [facility] [employer] [facility] segments. -LEFT POSTERIOR CEREBRAL ARTERY: Normal P1 segment. Normal opacification of the distal [employer] segments. -POSTERIOR COMMUNICATING ARTERIES: The right as above. The left is small but present. Normal opacification of the superior sagittal, straight, transverse, and sigmoid sinuses. No venous thrombosis. CT/CT head/brain wo IV con IMPRESSION: NON-CONTRAST HEAD CT: 1. No intracranial hemorrhage or mass effect. No CT evidence of acute territorial infarct. 2. Mild white matter small vessel ischemic changes. CTA NECK: 1. No evidence of significant stenosis, occlusion, dissection, or aneurysm of the major cervical arterial vasculature. 2. Mild calcium at the right carotid bulb without flow-limiting stenosis. CTA HEAD: 1. No evidence of significant stenosis, occlusion, dissection, or aneurysm of the major intracranial arterial vasculature. 2. Major cortical and dural venous sinuses are patent. Electronically signed by: Avel Bedolla MD 03/29/2025 10:22 AM EDT
--- NOTE | ~2025-03-29 | XR_ITS ---
EXAMINATION: XR CHEST CLINICAL INFORMATION: dizziness COMPARISON: December 09, 2015 TECHNIQUE: Frontal view of the chest was obtained. FINDINGS: Mild prominence of the interstitial markings. No consolidation, pleural fissure pneumothorax. Cardiomediastinal silhouette size is normal with a round cardiac apex and mild prominent aortic arch. Multilevel thoracic spondylosis. Radiopaque anchors overlapping the glenoid foci of the right shoulder. Degenerative changes in the right shoulder. Patient's large body habitus. XR/XR chest 1V IMPRESSION: Posterior mild interstitial lung edema in the correct clinical settings. 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 Electronically signed by: Lyle Zazueta MD 03/29/2025 09:28 AM EDT
--- NOTE | 2025-03-29 09:11 | ECG_ITS ---
Test Reason : dizzines Blood Pressure : */* mmHG Vent. Rate : 61 BPM Atrial Rate : 61 BPM P-R Int : 180 ms QRS Dur : 96 ms QT Int : 458 ms P-R-T Axes : 30 -6 9 degrees QTcB Int : 461 ms Normal sinus rhythm Possible Anterior infarct , age undetermined Abnormal ECG When compared with ECG of 22-Jul-2013 07:33, No significant change was found Referred By: Kamilla Vang Electronically Signed By: MCKAY RODRIGUEZ MD
--- NOTE | 2025-03-29 09:22 | ED_ITS ---
HPI - Dizziness General Chief Complaint: Dizziness Stated Complaint: ?CO EXPOSURE,DIZZINESS PER EMS Time Seen by Provider: 03/29/25 09:01 Source: patient, EMS, RN notes reviewed and old records reviewed Mode of arrival: EMS History of Present Illness ED Provider: Kamilla Vang PA-C HPI Narrative: 69-year-old female with a past medical history HLD, presenting to the ED via EMS complaining of dizziness described as spinning and lightheadedness since 04:00AM. Admits dizziness worse with head movement/position changes, improved at rest. Patient concerned for possible CO exposure. Admits had new gas fireplace installed 1 week ago, does have CO monitor at home, they were not going off & called [employer] on Tuesday who ensured everything was okay. Patient reports associated blurry vision, and nausea. Denies headache, vision loss, vomiting, chest pain, shortness of breath, weakness Related Data Previous Rx's ?Medication ?Instructions ?Recorded blood sugar diagnostic (FreeStyle #100 ea 02/10/22 Lite Strips) nitrofurantoin 100 mg PO Q12H 5 days #10 ca ps 12/14/23 monohydrate/macrocrystals 100 mg capsule (Macrobid) sulfamethoxazole 800 1 tab PO BID #14 tabs mg-trimethoprim 160 mg tablet (Bactrim DS) naproxen 500 mg tablet 500 mg PO BID #60 tabs 11/02 meclizine 25 mg tablet 25 mg PO TID PRN dizziness # 14 tabs 03/29/25 Allergies Allergy/AdvReac Type Severity Reaction Status Date / Time No Known Allergies (No Known Allergy Verified 03/29/25 09:07 Allergies*) mold, cat dander, seasonal Allergy Unknown unk Uncoded 12/02/23 08:35 Review of Systems 2 Review of Systems: Yes all other systems are reviewed and are negative Constitutional: Constitutional: Reports as per HPI Neurologic: Denies Abnormal speech present [facility] Past Medical History Attestation statement: The following information was validated with the patient. Source: old records reviewed Medical History Colonoscopy refused Radius fracture Normal colonoscopy Postmenopausal Abnormal Pap smear of cervix Vitamin D deficiency Hyperglycemia Hyperlipidemia Annual physical exam Surgical History Hx of section H/O shoulder surgery H/O: hysterectomy H/O removal of cyst Family History Family History Mother Breast CA Maternal Grandmother Breast CA Son Suicide Social History Social History Housing: House Alcohol intake: current Alcohol intake frequency: holidays/special occasions only Patient Tobacco Use Status: Never used Tobacco Smoked in Last 30 Days: No e-Cigarette/Vaping Use: Never Used Use of substances other than those prescribed or required for medical reasons: No Advance Directives: Yes Advance Directives Information Provided: Yes Advance Directives on File: No service: No Current occupational status: retired Current occupation: right handed Cognitive needs: No Hearing needs: No Vision needs: Yes Physical Exam 2 Vital Signs: Vital Signs: Last Vital Signs Temp 97.9 F 03/29/25 16:35 Pulse 107 H 03/29/25 16:28 Resp 16 03/29/25 12:35 BP 138/91 H 03/29/25 16:28 Pulse Ox 98 03/29/25 10:09 O2 Del Method Room Air 03/29/25 10:09 BMI result Body Mass Index 36.6 Const: General: cooperative, healthy appearing and no acute distress O rientation/consciousness: patient oriented x3 Limitations: no limitations HEENT: Head: Yes normal to inspection and Yes atraumatic Ears: hearing grossly normal bilaterally General nose exam: Normal external nose present Face and sinus: Yes normal facial exam Mouth: Normal oral and palatal mucosa present Throat: Yes posterior oropharynx normal, No peritonsillar mass, No uvula laterally displaced and No uvular edema Eyes: General: appearance normal, both eyes and all related structures P upils: Equal, round and reactive pupils present EOM: EOMs intact bilaterally and Nystagmus present Neck: Neck: Yes normal visual inspection and Yes no meningeal signs Resp: Effort & Inspection: normal respiratory effort and no respiratory distress Auscultation: clear to auscultation bilaterally Cardio: Rate: regular rate Heart sounds: S1 normal heart sound present and S2 normal heart sound present GI: Inspection: Yes normal to inspection Palpation (GI): Soft to palpation, nontender, no guarding and not rigid : General: Yes no CVA tenderness Back/Spine/Pelvis: Back: no CVA tenderness Skin: Rashes: no rashes Wounds: no wounds Neuro: General: patient oriented x3, tone normal, moves all extremities, no meningeal signs, no focal motor deficits and CN's II-XI intact bilaterally C ranial nerves: Yes CN's II-XII intact bilaterally, Yes Equal, round and reactive pupils present and Yes Nystagmus present horizontal fast component to the left Cognition (Neuro): normal cognition Speech: No Abnormal speech present M otor exam (neuro): 5/5 motor strength present throughout, Pronator motor function not present and no tremors Coordination: [id number] test normal Romberg Test: Negative Extrem: General: Yes normal to inspection NIH Stroke Scale Internal: Initial- Upon Arrival Level of Consciousness: Alert Level of Consciousness Questions: Answers both questions correctly Level of Consciousness Commands: Performs both tasks correctly Best Gaze: Normal Visual: No visual loss Facial Palsy: Normal Motor Arm (Right): No drift Motor Arm (Left): No drift Motor Leg (Right): No drift Motor Leg (Left): No drift Limb Ataxia: Absent Sensory: Normal Best Language: No aphasia Dysarthia: Normal Extinction and Inattention: No abnormality Score: 0 Course Course Course Narrative: -1110--labs reassuring. Troponin x1 negative. Carboxyhemoglobin 2.0 (negative) XR chest 1V IMPRESSION: Posterior mild interstitial lung edema in the correct clinical settings. 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 CT head/brain wo IV con IMPRESSION: NON-CONTRAST HEAD CT: 1. No intracranial hemorrhage or mass effect. No CT evidence of acute territorial infarct. 2. Mild white matter small vessel ischemic changes. CTA NECK: 1. No evidence of significant stenosis, occlusion, dissection, or aneurysm of the major cervical arterial vasculature. 2. Mild calcium at the right carotid bulb without flow-limiting stenosis. CTA HEAD: 1. No evidence of significant stenosis, occlusion, dissection, or aneurysm of the major intracranial arterial vasculature. 2. Major cortical and dural venous sinuses are patent. -orthostatic vital signs positive. IVF running. Will complete and repeat -on re-evaluation patient reports continued dizziness with head movement. Offered additional medications however patient refusing until she can eat. Will feed patient and re-evaluate. -1440--patient reports symptomatic improvement. Admits still feels slightly dizzy with movement only. Repeat orthostatics still positive with increase in heart rate. Will give additional L IVF and re-evaluate. Patient would not like any additional medications at this time -1700--on re-evaluation patient reports symptomatic improvement. COVID and flu testing negative. Repeat orthostatics improved, but still positive with heart rate increase of 38. Discussed with patient potential admission and also potential MRI however she is not agreeable and would like to be discharged home. Son will come to ED to pick patient up. Discussed needed close follow up with PCP/neurology. She verbalized understanding. Strict return precautions and worrisome signs and symptoms discussed > patient ambulated full lap in the ED without ataxia. Steady gait. Results discussed with patient including worrisome signs and symptoms and strict return precautions, and when to return to the emergency department. They verbalized understanding and feel safe for discharge at this time. Medications Administered Discontinued Medications Generic Name Dose Route Start Last Admin Trade Name Freq PRN Reason Stop Dose Admin Diphenhydramine HCl 12.5 mg 03/29/25 12:22 03/29/25 12:33 Diphenhydramine Hcl 50 Mg/Ml Vial IVPUSH 03/29/25 12:23 12.5 mg ONCE ONE Administration Sodium Chloride 1,000 mls @ 999 mls/hr 03/29/25 09:15 03/29/25 13:31 Ns IV 03/29/25 10:15 Infused .Q1H1M FAITH Infusion Sodium Chloride 1,000 mls @ 999 mls/hr 03/29/25 15:00 03/29/25 16:10 Ns IV 03/29/25 16:00 Infused .Q1H1M FAITH Infusion Iohexol 100 ml 03/29/25 09:46 03/29/25 09:46 Iohexol 350 Mg/Ml 100 Ml Infus..Btl IV 03/29/25 09:47 70 ml ONCE ONE Administration Lorazepam 1 mg 03/29/25 12:22 03/29/25 12:33 Lorazepam 1 Mg Tablet PO 03/29/25 12:23 1 mg ONCE ONE Administration Meclizine HCl 25 mg 03/29/25 09:11 03/29/25 10:53 Meclizine Hcl 25 Mg Tablet PO 03/29/25 09:12 25 mg ONCE ONE Administration Medical Decision Making Medical Decision Making MDM Narrative: 69-year-old female with a past medical history HLD, presenting to the ED via EMS complaining of dizziness described as spinning and lightheadedness since 04:00AM w/associated blurry vision, and nausea. On exam hypertensive, NAD/nontoxic appearing, horizontal nystagmus noted. No focal neuro deficits. Lungs CTA. Concern for BPPV vs CO exposure vs ?cerebellar CVA although symptoms are very positional. Lower suspicion for SAH - however will obtain dry head CT within 6 hour window. Rule out metabolic abnormalities. Rule out atypical ACS. Unlikely dissection/PE Plan: EKG, labs, UA, CXR, head CT, orthostatics, meclizine, IVF, re-evaluate Please refer to course for remaining clinical decision making, interpretation of labs/imaging results, and discussions with consultants and/or family members. Differential Diagnosis Differential Diagnoses: The differential diagnosis associated with the presentation includes As above Admission/Observation Consideration of admission/observation: Escalation of care including admission/observation considered Lab Data MDM Lab Attestation statement: I reviewed the patient's lab results. 03/29/25 09:41 03/29/25 09:41 Labs: Lab Results 03/29/25 03/29/25 03/29/25 Range/Units 09:41 09:46 11:05 WBC 5.8 (4.8-10.8) X10*3/uL RBC 5.36 (4.20-5.50) X10*6/uL Hgb 15.4 (12.0-16.0) g/dl Hct 46.0 (37.0-47.0) % MCV 85.8 (80.0-98.0) fL MCH 28.7 (27.0-33.0) pg MCHC 33.5 (31.0-35.0) g/dl RDW 13.1 (11.0-16.0) % Plt Count 205 (160-400) X10*3/uL MPV 9.7 (9.4-12.3) fL Immature Gran % (Auto) 0.2 (0.0-0.4) % Neut % (Auto) 65.7 (45-73) % Lymph % (Auto) 27.0 (20-40) % Bennett % (Auto) 6.4 (2-11) % Eos % (Auto) 0.2 (0-4) % Baso % (Auto) 0.5 (0-2) % Lymph # (Auto) 1.6 (1.2-4.9) X10*3/uL Bennett # (Auto) 0.4 (0.1-1.2) X10*3/uL Eos # (Auto) 0.0 (0.0-0.4) X10*3/uL Baso # (Auto) 0.0 (0.0-0.2) X10*3/uL Abs Immat Gran (auto) 0.01 (0.00-0.03) X10*3/uL Absolute Neuts (auto) 3.8 (2.0-8.3) x10*3/uL Absolute Nucleated RBC 0.000 (0.0-0.012) X10*3/uL Nucleated RBC % (auto) 0.0 (0.0-0.2) /100WBC PT 10.8 L (10.9-12.4) SEC INR 0.9 (0.9-1.1) Carboxyhemoglobin % 2.0 % Sodium 140 (135-145) mmol/L Potassium 4.2 (3.3-5.1) mmol/L Chloride 107 (96-108) mmol/L Carbon Dioxide 25 (22-29) mmol/L Anion Gap 12 (12-20) BUN 16 (9-16) mg/dL Creatinine 0.79 (0.5-1.4) mg/dL Estim Creat Clear Calc 89.8 Estimated GFR > 60 Random Glucose 119 H (60-115) mg/dL Calcium 9.6 (8.4-10.2) mg/dL Magnesium 2.1 (1.6-2.6) mg/dL Total Bilirubin 0.7 (0.0-1.0) mg/dL Direct Bilirubin 0.2 (0.0-0.5) mg/dL AST 32 H (5-31) U/L ALT 33 H (0-31) U/L Alkaline Phosphatase 92 (39-117) U/L Troponin I High Sens < 2.7 (<3.5-17.0) ng/L Total Protein 7.1 (6.5-8.0) g/dL Albumin 4.3 (3.5-5.0) g/dL Urine Color Yellow Urine Appearance Clear Urine pH 7.5 (5.0-9.0) Ur Specific [place] >= 1.030 H (1.005-1.025) Urine Protein Negative (Neg-Trace) mg/dL Urine Glucose (UA) Negative (Negative) mg/dL Urine Ketones Trace (Negative) mg/dL Urine Blood Negative (Negative) Urine Nitrite Negative (Negative) Ur Leukocyte Esterase Negative (Negative) COVID-19 (JOANNA) (Negative) COVID-19 Clin Com Influenza Type A (DOROTEO) (Negative) Influenza Type B (DOROTEO) (Negative) Influenza A & B Note 03/29/25 03/29/25 Range/Units 12:47 16:45 WBC (4.8-10.8) X10*3/uL RBC (4.20-5.50) X10*6/uL Hgb (12.0-16.0) g/dl Hct (37.0-47.0) % MCV (80.0-98.0) fL MCH (27.0-33.0) pg MCHC (31.0-35.0) g/dl RDW (11.0-16.0) % Plt Count (160-400) X10*3/uL MPV (9.4-12.3) fL Immature Gran % (Auto) (0.0-0.4) % Neut % (Auto) (45-73) % Lymph % (Auto) (20-40) % Bennett % (Auto) (2-11) % Eos % (Auto) (0-4) % Baso % (Auto) (0-2) % Lymph # (Auto) (1.2-4.9) X10*3/uL Bennett # (Auto) (0.1-1.2) X10*3/uL Eos # (Auto) (0.0-0.4) X10*3/uL Baso # (Auto) (0.0-0.2) X10*3/uL Abs Immat Gran (auto) (0.00-0.03) X10*3/uL Absolute Neuts (auto) (2.0-8.3) x10*3/uL Absolute Nucleated RBC (0.0-0.012) X10*3/uL Nucleated RBC % (auto) (0.0-0.2) /100WBC PT (10.9-12.4) SEC INR (0.9-1.1) Carboxyhemoglobin % % Sodium (135-145) mmol/L Potassium (3.3-5.1) mmol/L Chloride (96-108) mmol/L Carbon Dioxide (22-29) mmol/L Anion Gap (12-20) BUN (9-16) mg/dL Creatinine (0.5-1.4) mg/dL Estim Creat Clear Calc Estimated GFR Random Glucose (60-115) mg/dL Calcium (8.4-10.2) mg/dL Magnesium (1.6-2.6) mg/dL Total Bilirubin (0.0-1.0) mg/dL Direct Bilirubin (0.0-0.5) mg/dL AST (5-31) U/L ALT (0-31) U/L Alkaline Phosphatase (39-117) U/L Troponin I High Sens < 2.7 (<3.5-17.0) ng/L Total Protein (6.5-8.0) g/dL Albumin (3.5-5.0) g/dL Urine Color Urine Appearance Urine pH (5.0-9.0) Ur Specific [place] (1.005-1.025) Urine Protein (Neg-Trace) mg/dL Urine Glucose (UA) (Negative) mg/dL Urine Ketones (Negative) mg/dL Urine Blood (Negative) Urine Nitrite (Negative) Ur Leukocyte Esterase (Negative) COVID-19 (JOANNA) Negative (Negative) COVID-19 Clin Com See Note Influenza Type A (DOROTEO) Negative (Negative) Influenza Type B (DOROTEO) Negative (Negative) Influenza A & B Note See Note Radiology Impression Discussion of test interpretation with radiology: I have reviewed the radiologist's reading. External Record Review External record reviewed: Inpatient record, Office record, Outpatient record, Prior outpatient labs, Prior outpatient radiology, Primary care record and Outside ED record Tests considered The following testing was considered but not selected: As above Discharge Plan Discharge Clinical Impression: Dizziness Patient Disposition: Home, Self-Care Instructions: Dizziness (ED) Additional Instructions: Your blood work and imaging studies are reassuring Your orthostatic vital signs were positive today. Make sure you are staying hydrated at home and changing positions slowly. Meclizine can help with dizziness. Take as needed Continue home prescribed medications. Monitor your blood pressure at home If your symptoms persist, recur, you develop a headache, nausea/vomiting, persistent dizziness, chest pain or shortness of breath please return to the emergency department Please have close follow up with your primary care doctor Prescriptions: New meclizine 25 mg tablet 25 mg PO TID PRN (Reason: dizziness) Qty: 14 0RF No Action sulfamethoxazole-trimethoprim [Bactrim DS] 800-160 mg tablet 1 tab PO BID Qty: 14 0RF naproxen 500 mg tablet 500 mg PO BID Qty: 60 0RF (DME) FreeStyle Lite Strips Strip See Rx Instructions .ROUTE .MEDSUPPLY Qty: 100 3RF Rx Instructions: test blood sugar once daily nitrofurantoin monohyd/m-cryst [Macrobid] 100 mg capsule 100 mg PO Q12H 5 Days Qty: 10 0RF Rx Instructions: must administer with a meal/food Referrals: Brooke Cruz MD [Primary Care Provider, Internal Medicine] - 3 days Print Language: Citizen [place]
[2025-03-29] MEDS: iohexoL 350 MG/ML 100 ML INFUS..BTL IV (09:46)
[2025-03-29 09:47] LABS: Hematocrit 46.0 % (37.0-47.0); Hemoglobin 15.4 g/dl (12.0-16.0); Imm Gran Abs Auto 0.01 X10*3/uL (0.00-0.03); Imm Gran Pct Auto 0.2 % (0.0-0.4); Lymphocytes Absolute Auto 1.6 X10*3/uL (1.2-4.9); MANUAL DIFF FLAG NO; Mean Corpuscular HGB Conc 33.5 g/dl (31.0-35.0); Mean Corpuscular Hemoglobin 28.7 pg (27.0-33.0); Mean Corpuscular Volume 85.8 fL (80.0-98.0); NRBC Abs Auto 0.000 X10*3/uL (0.0-0.012); NRBC Pct Auto 0.0 /100WBC (0.0-0.2); Platelet Count 205 X10*3/uL (160-400); Red Blood Count 5.36 X10*6/uL (4.20-5.50); White Blood Count 5.8 X10*3/uL (4.8-10.8)
[2025-03-29 09:49] LABS: Carbon Monoxide POC 2.0 %
[2025-03-29 09:57] LABS: INTERNATIONAL NORM RATIO 0.9 (0.9-1.1); Prothrombin Time 10.8 SEC (10.9-12.4)
[2025-03-29 10:18] LABS: Alanine Aminotransferase 33 U/L (0-31); Albumin Level 4.3 g/dL (3.5-5.0); Alkaline Phosphatase 92 U/L (39-117); Anion Gap 12 (12-20); Aspartate Amino Transferase 32 U/L (5-31); Blood Urea Nitrogen 16 mg/dL (9-16); Calcium 9.6 mg/dL (8.4-10.2); Carbon Dioxide 25 mmol/L (22-29); Chloride 107 mmol/L (96-108); Creatinine Clr Calc Pharmacy 89.8; Estimated Glomerular Filt Rate > 60; Magnesium 2.1 mg/dL (1.6-2.6); Potassium 4.2 mmol/L (3.3-5.1); Sodium 140 mmol/L (135-145); Total Protein 7.1 g/dL (6.5-8.0)
[2025-03-29 10:25] LABS: Troponin-I High Sensitivity < 2.7 ng/L (<3.5-17.0)
[2025-03-29 11:11] LABS: Appearance Urine Clear; Glucose Urine UA Negative (Negative); PH 7.5 (5.0-9.0); Specific Gravity - Urine >= 1.030 (1.005-1.025)
[2025-03-29 13:19] LABS: Troponin-I High Sensitivity < 2.7 ng/L (<3.5-17.0)
[2025-03-29 17:08] LABS: COVID-19 Test Negative (Negative); IDNOW Serial# 55D5AD1C; IDNOW Serial# 58CA691E; Influenza B2 Negative (Negative)
== END 2025-03-29 18:12 | disposition home or self-care (01) ==
PROVIDERS: Physician Assistant; Emergency Provider Emergency Medicine; PCP Internal Medicine
DX: R42 Dizziness and giddiness (principal); H53.8 Other visual disturbances; R11.0 Nausea
CPT/HCPCS: 36415; 70450; 70496; 70498; 71045; 80048; 80076; 81003; 82375; 83735; 84484; 85025; 85610; 87502; 87635; 93005; 96361; 96374; 99285; J1200; Q9967

== ENCOUNTER → 2025-03-29 09:11 | Outpatient (BNV) | payer MEDICARE, OTHER, SELFPAY | PROVIDERS: Emergency Provider Emergency Medicine; PCP Internal Medicine; Visit Provider Radiology Diagnostic Radiology | DX: I67.82 Cerebral ischemia (principal); R42 Dizziness and giddiness; H53.8 Other visual disturbances | CPT/HCPCS: 70450; 70496; 70498 ==

== ENCOUNTER → 2025-03-29 09:11 | Outpatient (BNV) | payer MEDICARE, OTHER, SELFPAY | PROVIDERS: Emergency Provider Emergency Medicine; PCP Internal Medicine; Visit Provider Internal Medicine Cardiovascular Disease | DX: R94.31 Abnormal electrocardiogram [ECG] [EKG] (principal); R42 Dizziness and giddiness | CPT/HCPCS: 93010 ==

== ENCOUNTER 2025-04-01 09:09 | Outpatient (AMB) | payer MEDICARE, OTHER, SELFPAY ==
--- NOTE | 2025-04-01 09:17 | AM.OFFWIN_ITS ---
Intake Vital Signs 04/01/25 09:19 Height 5 ft 8.5 in Weight 240 lb BMI 36.0 BP 126/94 H Blood Pressure Location Lt brachial Position Sitting Pulse 67 Pulse Source Pulse Oximeter Temp 98 F Temp Source Oral Pulse Oximetry (%) 96 Oxygen Delivery Method Room Air Intake Visit Reasons: EP BP Check, Dizziness Intake Note: Patient presents with c/o dizziness xfew days - patient would like flu test done Patient Tobacco Use Status: Never used Tobacco Allergies No Known Allergies (No Known Allergies*) Allergy (Verified 04/01/25 09:24) mold, cat dander, seasonal Allergy (Unknown, Uncoded 04/01/25 09:24) unk HPI HPI Comments History of Present Illness Details 69 y/o Female patient who presents to [facility] walk in clinic with c/o Dizziness. Describes are symptoms as spinning and lightheadedness w/associated blurry vision, and nausea. Pt was recently seen (03/27) and evaluated at the [facility] for similar concern. She was diagnosed with Vertigo and was found to have Positive Orthostatics in the ED. All her blood work, Resp Panel and imaging studies were negative. Denies any Head injury or trauma. Pt asking for Influenza testing. [facility] Medical History (Updated 04/01/25 @ 09:47 by Corina Christiansen NP) Acute respiratory disease Colonoscopy refused Radius fracture Normal colonoscopy Postmenopausal Abnormal Pap smear of cervix Vitamin D deficiency Hyperglycemia Hyperlipidemia Annual physical exam Surgical History Hx of section H/O shoulder surgery H/O: hysterectomy H/O removal of cyst Family History Mother Breast CA Maternal Grandmother Breast CA Son Suicide Social History Housing: House Alcohol intake: current Alcohol intake frequency: holidays/special occasions only Patient Tobacco Use Status: Never used Tobacco e-Cigarette/Vaping Use: Never Used service: No Current occupational status: retired Current occupation: right handed Cognitive needs: No Hearing needs: No Vision needs: Yes Female Reproductive History Menstrual Age of Menarche: 13 Review of Systems Const All systems reviewed & are unremarkable except as noted in HPI and below Physical Exam Vital Signs: Last Vital Signs Temp 98 F 04/01/25 09:19 Pulse 67 04/01/25 09:19 BP 126/94 H 04/01/25 09:19 Pulse Ox 96 04/01/25 09:19 Oxygen Delivery Method Room Air 04/01/25 09:19 BMI result Body Mass Index 36.0 Const General: no acute distress Nutritional Appearance: obese Orientation/consciousness: patient oriented x3 HEENT Head: Yes normocephalic Ears: external ears normal and TM abnormal obstructed by cerumen bilateral General nose exam: Normal external nose present Face and sinus: Yes sinuses nontender Mouth: moist mucous membranes Throat: Yes uvula midline Resp Effort & Inspection: normal respiratory effort Auscultation: clear to auscultation bilaterally Cardio Heart sounds: S1 normal heart sound present and S2 normal heart sound present Neuro General: patient oriented x3 Assessment & Plan Assessment & Plan (1) Acute respiratory disease: Code(s): J06.9 - Acute upper respiratory infection, unspecified Plan: Ordered SARs as requested - despite being negative in ED last Wed. Continue with Meclizine as prescribed. Recommended Ear Lavage/irrigation - declined Advised to F/U with PCP for possible ENT referral. Orders: Orders SARS-CoV2/FLU/RSV Today J06.9 - Acute upper respiratory infection, unspecified Coding Level of Care Code Est Pt Level 4 (61137) Diagnoses Acute respiratory disease J06.9 Time Spent (min) 20
[2025-04-01 09:19] VITALS: BP 126/94; PULSE 67; TEMP 36.6; O2SAT 96; BMI 36.0
== END 2025-04-01 09:49 | disposition home or self-care (01) ==
PROVIDERS: PCP Internal Medicine; Visit Provider Nurse Practitioner Family
DX: J06.9 Acute upper respiratory infection, unspecified (principal)

== ENCOUNTER 2025-04-01 09:09 | Outpatient (REF) | payer MEDICARE, OTHER, SELFPAY ==
[2025-04-01 14:14] LABS: Resp Syncy Virus RNA Qual PCR NEGATIVE (Negative); SARS COV2 PCR INHOUSE NEGATIVE (Negative)
== END 2025-04-01 09:10 | disposition home or self-care (01) ==
LOC: HO.LAB 09:09
PROVIDERS: PCP Internal Medicine; Visit Provider Nurse Practitioner Family
DX: J06.9 Acute upper respiratory infection, unspecified (principal)
CPT/HCPCS: 87637; 99212

== ENCOUNTER 2025-04-02 11:48 | Outpatient (AMB) | payer MEDICARE, OTHER, SELFPAY ==
[2025-04-02 12:29] VITALS: BP 124/84; PULSE 84; RESP 16; TEMP 36.6; O2SAT 98; BMI 36.7
--- NOTE | 2025-04-02 12:29 | MHC.PC.OV ---
Vital Signs 04/02/25 12:29 Height 5 ft 8.5 in Weight 245 lb BMI 36.7 BP 124/84 Blood Pressure Location Lt brachial Position Sitting Respiration 16 Pulse 84 Pulse Source Pulse Oximeter Temp 97.8 F Temp Source Oral Pulse Oximetry (%) 98 Intake Visit Reasons: ER follow up Intake Note: Pt is coming in for ED follow up. Accompanied by: Self / Same As Patient Allergies No Known Allergies (No Known Allergies*) Allergy (Verified 04/02/25 12:32) mold, cat dander, seasonal Allergy (Unknown, Uncoded 04/01/25 09:24) unk Medication List - Last Reconciled 04/02/25 by Brooke Cruz MD blood sugar diagnostic (FreeStyle Lite Strips) test blood sugar once daily meclizine 25 mg PO TID PRN naproxen 500 mg PO BID Tobacco use date assessed: 04/02/25 Fall risk assessment: No Falls in past year Last assessed Fall Risk: 04/02/25 Dental Screening Dental Screen Date: 04/02/25 Did you have a dental visit in the last 12 months?: Yes Did you have a dental problem in the last 6 months where you did not have access to dental care?: No HPI ER follow up HPI Details Patient presents for the follow-up of ER visit to [facility] for acute positional vertigo. Patient underwent workup including CT of the brain and brain and neck CT angiogram which were negative. Patient improved on meclizine. She complains of persistent right ear feeling blocked but denies any pain or or ear canal discharge. [facility] Medical History Acute respiratory disease Colonoscopy refused Radius fracture Normal colonoscopy Postmenopausal Abnormal Pap smear of cervix Vitamin D deficiency Hyperglycemia Hyperlipidemia Annual physical exam Surgical History Hx of section H/O shoulder surgery H/O: hysterectomy H/O removal of cyst Family History Mother Breast CA Maternal Grandmother Breast CA Son Suicide Social History Housing: House Alcohol intake: current Alcohol intake frequency: holidays/special occasions only Patient Tobacco Use Status: Never used Tobacco e-Cigarette/Vaping Use: Never Used service: No Current occupational status: retired Current occupation: right handed Cognitive needs: No Hearing needs: No Vision needs: Yes Female Reproductive History Menstrual Age of Menarche: 13 Questionnaire Thrive Questionnaire Date Thrive assessed: 12/02/23 CHARMAINE-7 AMB Questionnaire CHARMAINE-7 Date CHARMAINE - 7 assessed: 12/02/23 Source: Developed by Drs. Sawyer Celis, Pati Capps, Torrey Villa and colleagues, with an educational sharan from [employer]. Review of Systems Const All systems reviewed & are unremarkable except as noted in HPI and below Eyes Reports no additional complaints Card Reports no additional complaints Resp Reports no additional complaints GI Reports no additional complaints Reports no additional complaints Physical exam (Primary Care) Vital Signs: Last Vital Signs Temp 97.8 F 04/02/25 12:29 Pulse 84 04/02/25 12:29 Resp 16 04/02/25 12:29 BP 124/84 04/02/25 12:29 Pulse Ox 98 04/02/25 12:29 BMI result Body Mass Index 36.7 Tobacco/Smoking Status: Tobacco use Status Tobacco use date assessed 04/02/25 04/02/25 12:37 Patient Tobacco Use Status Never used Tobacco 04/02/25 12:37 e-Cigarette/Vaping Use Never Used 04/02/25 12:37 Thrive Assessment: Date of Thrive Assessment Date Thrive assessed 12/02/23 04/02/25 12:37 Const General: no acute distress HENMT Head: Yes normal to inspection Ears: TM normal on the left and unable to visualize TM (Impacted cerumen) on the right Face and sinus: Yes normal facial exam Throat: Yes posterior oropharynx normal Resp Effort & Inspection: normal respiratory effort Auscultation: clear to auscultation bilaterally Cardio Rhythm: regular rhythm Heart sounds: S1 normal heart sound present and S2 normal heart sound present GI Inspection: Yes normal to inspection Coding Level of Care Code Est Pt Level 4 (27337) Diagnoses Vertigo R42 Hyperlipidemia E78.5 Assessment & Plan Assessment & Plan (1) Vertigo: Code(s): R42 - Dizziness and giddiness Category: Medical Plan: Patient will continue meclizine as needed. She underwent right ear lavage with normal tympanic membrane visualized after (2) Hyperlipidemia: Comment: pt refuses to take statins, despite strong FHx of coronary artery disease, both parents had CABG in late 60's Code(s): E78.5 - Hyperlipidemia, unspecified Category: Medical Plan: Patient declined taking medications
== END 2025-04-02 15:44 | disposition home or self-care (01) ==
LOC: HO.HMCC 11:48
PROVIDERS: PCP Internal Medicine; Visit Provider Internal Medicine
DX: R42 Dizziness and giddiness (principal); E78.5 Hyperlipidemia, unspecified

== ENCOUNTER → 2025-04-02 11:48 | Outpatient (BNVA) | payer MEDICARE, OTHER, SELFPAY | PROVIDERS: PCP Internal Medicine; Visit Provider Internal Medicine | DX: R42 Dizziness and giddiness (principal); E78.5 Hyperlipidemia, unspecified | CPT/HCPCS: 99212 ==

== ENCOUNTER 2025-04-04 08:14 | Outpatient (REF) | payer MEDICARE, OTHER, SELFPAY ==
[2025-04-04 11:05] LABS: Cholesterol 235 mg/dL (<200); HDL Cholesterol 46 mg/dL (>40); Triglycerides 132 mg/dL (<150)
== END 2025-04-04 08:15 | disposition home or self-care (01) ==
LOC: HO.HMGCLDS 08:14
PROVIDERS: PCP Internal Medicine; Visit Provider Internal Medicine
DX: R73.9 Hyperglycemia, unspecified (principal); E78.5 Hyperlipidemia, unspecified; E55.9 Vitamin D deficiency, unspecified
CPT/HCPCS: 36415; 80061; 82306; 82533; 83036; 84443